=== PATIENT | female | born 1965 | race Hispanic/Latino ===

== ENCOUNTER 2020-06-01 05:52 | Outpatient (CLI) | payer OTHER ==
[2020-06-01 14:08] LABS: Prothrombin Time 12.7 sec (12.0-14.7)
[2020-06-01 14:09] LABS: Hemoglobin 14.4 g/dL (12.0-16.0); Mean Corpuscular HGB CONC 33.5 g/dL (32.0-36.0); Mean Corpuscular Hemoglobin 30.6 pg (27.0-31.0); Mean Corpuscular Volume 91.3 fL (78.0-98.0); Mean Platelet Volume 8.8 fL (7.4-10.4); Platelet Count 246 thou/uL (130-400); RBC Distribution Width 11.5 % (11.5-14.5); Red Blood Cell (RBC) Count 4.69 mill/uL (4.20-5.40); White Blood Cell (WBC) Count 6.8 thou/uL (4.8-10.8)
[2020-06-01 14:26] LABS: Anion Gap 14 mmol/L (10-20); BUN (Urea Nitrogen) 13 mg/dL (9.8-20.1); Calc. Creatinine Clearance 0 mL/min (70-130); Calcium 9.3 mg/dL (7.8-10.44); Carbon Dioxide 26 mmol/L (22-29); Chloride 105 mmol/L (98-107); Estimated GFR-MDRD Greater than 90; Glucose 108 mg/dL (70-105); Sodium 141 mmol/L (136-145)
[2020-06-02 14:49] LABS: SARS-CoV-2 MS2 Positive; SARS-CoV-2 N Gene Negative; SARS-CoV-2 S Gene Negative; SARS-CoV-2 by NAA Not Detected (NotDetected); SARS-CoV-2 orf1ab Negative
--- NOTE | 2020-06-04 15:39 | EKG ---
Test Reason : Blood Pressure : / mmHG Vent. Rate : 066 BPM Atrial Rate : 066 BPM P-R Int : 146 ms QRS Dur : 092 ms QT Int : 400 ms P-R-T Axes : 049 046 025 degrees QTc Int : 419 ms Normal sinus rhythm with sinus arrhythmia Cannot rule out Anterior infarct , age undetermined Abnormal ECG No previous ECGs available Confirmed by RODRIGO URBINA M.D. ([id number] on 06/04/2020 3:39:26 PM Referred By: JORGE Confirmed By:RODRIGO URBINA M.D.
== END 2020-06-01 05:53 | disposition home or self-care (01) ==
LOC: LABBT 05:52
PROVIDERS: ATTEND Urology
DX: Z01.818 Encounter for other preprocedural examination (principal); Z20.828 Contact with and (suspected) exposure to other viral communicable diseases
CPT/HCPCS: 80048; 85027; 85610; 85730; 87635; 93005; 93010; U0003

== ENCOUNTER 2020-06-01 07:29 | Outpatient (CLI) | payer OTHER ==
--- NOTE | 2020-06-01 08:05 | ULT ---
US Renal Bilateral STANDARD HISTORY: Renal calculus, cyst, frequency of micturition COMPARISON: CT Stone from 05/28/2020 FINDINGS: The right kidney measures 12.7 cm in length and the left kidney measures 12.9 cm in length. No renal mass, shadowing calculus or hydronephrosis is seen on either side. Bilateral ureteral jets are noted in the urinary bladder. A 1 cm cyst is seen in the right kidney. The prevoid bladder volume measures 314 cc with a postvoid residual of 19 cc. The urinary bladder is grossly unremarkable. IMPRESSION: No evidence of high-grade obstruction.
--- NOTE | 2020-06-01 08:44 | RAD ---
ABDOMEN 1 VIEW: HISTORY: Ureteral calculus, renal cyst. COMPARISON: CT scan, 05/28/2020. FINDINGS: There is an approximately 0.5 cm diameter rounded opacity overlying the right side of the pelvis whic h could well represent the previously noted distal right ureteral calculus at the ureterovesicular ju nction seen on prior CT. Gas and fecal material overlie and somewhat obscure the kidneys. IMPRESSION: Probable distal right ureteral calculus when compared to a 05/28/2020 CT etl analyst developer film. POS: RRE
== END 2020-06-01 07:30 | disposition home or self-care (01) ==
LOC: BICULT 07:29
PROVIDERS: ATTEND Urology
DX: N28.1 Cyst of kidney, acquired (principal); R35.0 Frequency of micturition; N20.1 Calculus of ureter
CPT/HCPCS: 74018; 76770

== ENCOUNTER 2020-06-06 10:46 | Day surgery (SDC) | payer OTHER ==
[2020-06-04 14:45] VITALS: BMI 28.1
[2020-06-06] MEDS ORDERED: Levofloxacin 500 mg/D5W 100 ml Premix Bag ONE (11:25)
--- NOTE | 2020-06-06 11:39 | RAD ---
EXAM: Single view of the abdomen HISTORY: Right ureteral calcification COMPARISON: 06/01/[address] abdomen/pelvis 05/28/2020 FINDINGS: Single view of the abdomen shows a nonspecific, nonobstructive bowel gas pattern. No suspi cious calcifications are seen. The previously seen calcification in the right pelvis is no longer visualized. No calcifications project over either renal shadow. The bones are unremarkable. Cholecyst ectomy clips are seen. IMPRESSION: No urinary collecting system calculi identified
[2020-06-06] MEDS ORDERED: Fentanyl 100 MCG/2 ML VIAL ONE (12:46)
[2020-06-06] MEDS ORDERED: SUGAMMADEX SODIUM 200 MG/2 ML VIAL ONE (12:46)
[2020-06-06] MEDS ORDERED: Iothalamate Meglumine 60% 50 ML VIAL FS ONE (13:14)
[2020-06-06] MEDS ORDERED: Phenazopyridine HCl 97.5 MG TABLET ONE (14:12)
[2020-06-06] MEDS ORDERED: Oxybutynin 5 MG TAB ONE (14:13)
--- NOTE | 2020-06-06 14:18 | RAD ---
EXAM: XR IVP Retrograde PROVIDED CLINICAL HISTORY: Right UVJ calculus and hydronephrosis. COMPARISON: CT abdomen and pelvis on 05/28/2020 FINDINGS/IMPRESSION: Buttonhole Tacker image demonstrates surgical clips overlying the right upper quadrant. No definite suspicious ca lcification is seen. Right retrograde urogram is performed with normal caliber ureter and normal-appearing renal renal collecting system without hydronephrosis or hydroureter. No obvious fill ing defect is seen. Contrast is seen in the urinary bladder. Final image does demonstrate a guide catheter in place with guidewire overlying the right renal collecting system. Final image demonstrate s removal of guidewire and catheter with residual contrast in urinary bladder and residual minimal contrast in the right renal collecting system. Correlation with intraoperative findings is scotty hernadnez
[2020-06-06] MEDS ORDERED: Lidocaine 1% PF 5 ML VIAL ONE (15:08)
[2020-06-06] MEDS ORDERED: Glycopyrrolate 0.2 MG/ML 5 ML SYRINGE ONE (15:08)
[2020-06-06] MEDS ORDERED: Ondansetron PF 4 MG/2 ML Vial ONE (15:08)
[2020-06-06] MEDS ORDERED: PROPOFOL 200 MG/20 ML VIAL ONE (15:08)
[2020-06-06] MEDS ORDERED: Rocuronium Bromide 10 MG/ML (10ML VIAL) ONE (15:08)
[2020-06-06] MEDS ORDERED: Ketorolac Tromethamine 30 MG/ML VIAL ONE (15:08)
[2020-06-06] MEDS ORDERED: Dexamethasone 20 MG/5 ML VIAL ONE (15:08)
--- NOTE | 2020-06-06 18:07 | OP ---
DATE OF PROCEDURE: 06/06/2020 PREOPERATIVE DIAGNOSIS: A 54-year-old female, self-referred for right 6-mm ureterovesical junction stone. POSTOPERATIVE DIAGNOSIS: A 54-year-old female, self-referred for right 6-mm ureterovesical junction stone. PROCEDURES PERFORMED: Cystoscopy, right retrograde, diagnostic right ureteroscopy. COMPLICATIONS: None apparent. INTRAOPERATIVE FINDINGS: Spontaneous passage of right ureteral calculi, diagnostic ureteroscopy negative for stone nidus. ANESTHESIA: LMA. DISPOSITION: To recovery room in stable condition. DRAINS: None. INDICATIONS FOR PROCEDURE AND HISTORY: Ms. Shields is a 54-year-old female, who presented to the emergency room x2 due to 6-mm ureteral calculi. Her most recent CAT scan demonstrated stone at the 6-mm right UVJ, she was advised regarding medical expulsion therapy. She was seen for followup demonstrating persistent stone nidus and she desired to proceed with ureteroscopy, laser lithotripsy. This morning, her KUB demonstrates no obvious stone nidus that was seen previously. However, she has persistent urgency and vague frequency. She was advised regarding options of observation versus diagnostic ureteroscopy for persistent stone nidus, which cannot be completely ruled out. She verbalizes understanding and desired to proceed as planned. DESCRIPTION OF PROCEDURE: After an informed consent was signed, the patient was taken to the operating room, placed in a dorsal lithotomy position with the genital area prepped and draped in the usual surgical sterile fashion. A 21-German cystoscope was utilized for cystoscopy, which demonstrated normal bladder mucosa. The UOs are normal orthotopic in position. There was some irritative changes of the right UO, we intubated the right UO with an open-ended catheter and there appeared to be no obvious filling defects or significant hydronephrosis. There was mild hang up at the right intramural ureter. Therefore, we passed a 0.035 Sensor wire to the right upper pole and a diagnostic ureteroscopy was performed to rule out occult stone nidus. Ureteroscope was passed without significant issues into the mid proximal ureter and I did not see any stone nidus. The intramural ureter was nicely dilated, consistent with spontaneous passage. As her ureter was nicely dilated, with minimal trauma with the ureteroscope, decision was made not to place a ureteral stent. She tolerated the procedure well and transported to the recovery room in stable condition. She is discharged with Azo p.r.n., Ditropan 5 mg one p.o. q.8 hours p.r.n. for bladder spasms, ciprofloxacin for 2 days. She will see me next month for followup. She was advised regarding gynecologic referral due to large uterine fibroids seen on CT scan. Job ID: [id number] [id number]
== END 2020-06-06 15:35 | disposition home or self-care (01) ==
LOC: SDC 10:46
PROVIDERS: ATTEND Urology
PROC: 0TJB8ZZ Inspection of Bladder, Via Natural or Artificial Opening Endoscopic (ICD-10-PCS; principal; 2020-06-06)
DX: N20.2 Calculus of kidney with calculus of ureter (principal); R35.0 Frequency of micturition; E78.00 Pure hypercholesterolemia, unspecified; I10 Essential (primary) hypertension; J45.909 Unspecified asthma, uncomplicated; Z79.899 Other long term (current) drug therapy; Z87.891 Personal history of nicotine dependence; Z88.5 Allergy status to narcotic agent
CPT/HCPCS: 74018; 74420; J0690; J1100; J1885; J1956; J2405; J2704; J3010